=== PATIENT | female | born 1995 ===

== ENCOUNTER → 2020-11-04 | Outpatient (CLI) | payer BC ==
[~2020-11-04] MED LIST: BENADRYL25 M2 PO; MELATONIN5 M1 SL; MOTRIN 800800 MG/TAB PO; PERCOCET 325 MG1 TA2 PO; PRENATAL VITAMI1 TA3 PO
== END ==
LOC: ZCOL.LAB 09:37
DX: Z20.828 Contact with and (suspected) exposure to other viral communicable diseases (principal)

== ENCOUNTER 2020-11-06 07:25 | Inpatient (IN) | payer BC ==
[2020-11-06] VITALS (42 sets, daily range): BP systolic 102–143; BP diastolic 57–90; PULSE 65–113; TEMP 97.9–98.7
[~2020-11-06] VITALS: Ht 165.1 cm; Wt 79.5 kg
--- NOTE | 2020-11-06 07:30 | NUR ---
Patient ambulatory onto unit with at side for scheduled induction of labor. Patient oriented to room, changes into gown, plan of care discussed. Patient reports good movement. Denies leaking of fluid. Patient does state she has had spotting and that she lost her mucous plug since Tuesday when her membranes were swept. EFMs on, VS taken. IV started in left forearm, labs drawn, LR infusing per order. Assessment completed. Consents signed. Pitocin started per order. Questions answered. Call light within reach.
[2020-11-06] MEDS ORDERED: BENADRYL25 M2 PO (08:00)
[2020-11-06] MEDS ORDERED: PRENATAL VITAMI1 TA3 PO (08:00)
[2020-11-06] MEDS ORDERED: MELATONIN5 M1 SL (08:01)
--- NOTE | 2020-11-06 08:20 | NUR ---
Dr. Schmidt to bedside for SVE/AROM. Plan of care discussed, questions answered. SVE /-1 per provider. AROM at 0823, clear fluid noted.
[2020-11-06 08:30] LABS: BASO # 0.1 (0.0-0.2); BASO % 0.4 % (0.0-2.0); EOS # 0.1 (0.0-0.7); EOS % 1.2 % (0-4.0); GRAN # 7.9 (1.4-6.5); GRAN % 71.4 % (42.2-75.2); HEMOGLOBIN 11.8 g/dl (12.5-16.0); LYMPH % 17.5 % (20.0-51.0); MEAN CELL VOLUME 93 fl (80.0-100.0); MEAN CORPUSCULAR HEMOGLOBIN 31 pg (27.0-31.0); MEAN CORPUSCULAR HGB CONC 33 g/dl (33.0-37.0); MEAN PLATELET VOLUME 11.1 fl (7.4-10.4); MONO # 0.9 (0.1-0.6); MONO % 8.2 % (1.7-9.3); PLATELET COUNT 273 K/mm3 (130-400); REDCELL DISTRIBUTION WIDTH-CV 12.4 % (11.5-14.5)
[2020-11-06 08:34] LABS: HEMATOCRIT 35.3 % (37.0-47.0)
--- NOTE | 2020-11-06 09:30 | NUR ---
Patient starting to feel discomfort with contractions, states they feel similar to period cramps during contraction. Denies intense pain or need for epidural at this time. at bedside. Call light within reach.
--- NOTE | 2020-11-06 09:50 | NUR ---
Pitocin off. O2 on via face mask. Patient repositioned to right lateral position. Plan of care discussed with patient and . Questions answered. Call light within reach.
--- NOTE | 2020-11-06 10:30 | NUR ---
Oxygen off. SVE 3-4/80/-2 per this RN. Pitocin restarted per orders. Patient repositioning self in bed. Popsicle provided per patient request.
--- NOTE | 2020-11-06 11:10 | NUR ---
Patient standing at bedside. States pain with contractions is increasing. Unable to rate on pain scale but states "they are worse than period cramps".
--- NOTE | 2020-11-06 11:30 | NUR ---
[id number]: Patient up to bathroom to have bowel movement.
--- NOTE | 2020-11-06 11:45 | NUR ---
Patient requesting epidural placement, breathing through contractions. Abdomen palpates firm. Bridger MORSE on unit for another epidural, will notify. Patient up to bathroom again.
--- NOTE | 2020-11-06 11:55 | NUR ---
[id number]: Patient up to bathroom for bowel movement.
--- NOTE | 2020-11-06 12:10 | NUR ---
1155: Patient returns from bathroom. Sitting up at edge of bed for epidural. 1200: Bridger MORSE at bedside. 1203: Single Shot given by Bridger MORSE, no adverse reaction noted. Patient to left tilt. Plan of care discussed. Will continue to monitor.
--- NOTE | 2020-11-06 13:35 | NUR ---
Patient reports rectal pressure with contractions. SVE 7/100/0 per this RN. Patient repositioned to right tilt with peanut ball in place, HOB elevated. Instructed to notify RN with increased rectal pressure, pain, or urge to push. at bedside. Call light within reach.
--- NOTE | 2020-11-06 14:00 | NUR ---
Patient calls out feeling "lightheaded". States it came on suddenly and "my face felt numb". VS WNL. SpO2 100%. BP 110/65 P 75. HOB lowered. Patient states she feels better. Encouraged to notify RN if it happens again. at bedside.
--- NOTE | 2020-11-06 15:50 | NUR ---
1430: SVE Complete/+3 per . 1438: Initial push. 1546: Spontaneous vaginal delivery of viable female infant over 2nd degree laceration assisted by . Pitocin off. care assumed by Loki MONTOYA at this time. 1548: Spontaneous vaginal delivery of placenta assisted by . Fundus firm. Pitocin infusing at 333ml/hr. 2nd degree perineal laceration repaired using 2-[address]-1. 1552: Red Jose catheter used to drain approximately 100ml clear yellow urine.
--- NOTE | 2020-11-06 20:00 | NUR ---
PT UP TO THE BATHROOM AND CLEANED UP. NEW GOWN, NEW MESH UNDIES, PAD AND ICEPACK. PT. TOLERATED WALKING WELL WITH NO DIZZINESS, LIGHTHEADEDNESS OR PROBLEMS. PT. MOVED OUT TO ROOM AND ABULATED WELL ON HER OWN.
[2020-11-07] MEDS ORDERED: MOTRIN 800800 MG/TAB PO (01:25)
[2020-11-07 02:00] VITALS: BP 110/81; PULSE 100; TEMP 98.3
[2020-11-07 08:39] VITALS: BP 114/64; PULSE 76; TEMP 97.8
[2020-11-07] MEDS ORDERED: PERCOCET 325 MG1 TA2 PO (09:44)
[2020-11-07 15:16] VITALS: BP 118/72; PULSE 66; TEMP 98
[2020-11-07 20:30] VITALS: BP 132/73; PULSE 71; TEMP 98.2
[2020-11-08 01:59] VITALS: BP 123/67; PULSE 58; TEMP 97.5
[2020-11-08 09:00] VITALS: BP 119/66; PULSE 65; TEMP 97.8
== END 2020-11-08 12:30 | disposition home or self-care (01) | DRG 807 ==
LOC: LDR 07:25 → OB 09:39
PROVIDERS: ADMIT Obstetrics & Gynecology
PROC: 10E0XZZ Delivery of Products of Conception, External Approach (ICD-10-PCS; principal; 2020-11-06)
PROC: 10907ZC Drainage of Amniotic Fluid, Therapeutic from Products of Conception, Via Natural or Artificial Opening (ICD-10-PCS; 2020-11-06)
PROC: 3E033VJ Introduction of Other Hormone into Peripheral Vein, Percutaneous Approach (ICD-10-PCS; 2020-11-06)
DX: O75.9 Complication of labor and delivery, unspecified (principal); Z37.0 Single live birth; O70.1 Second degree perineal laceration during delivery; Z3A.39 39 weeks gestation of pregnancy
CPT/HCPCS: J2590; J2795; J7120

== ENCOUNTER → 2020-12-15 | Outpatient (CLI) | payer BC ==
--- NOTE | 2020-12-15 17:27 | NUR ---
Pt, Ana María Damon, presents to consult with 5+ week old baby girl, Emeterio Damon and her spouse Hayden Damon. Pt requested a consult because Emeterio was below weight at one month of age. Emeterio was born on 11/06/2022 and weighed 7#13.9oz (3540 gms). Her discharge weight was 7#6oz and at her first doctor appointment on 11/10/2020 she weighed 7#5oz. On 12/07/20 Emeterio weighed 7#8oz per parents report and she was started on reflux medication. She didn't seem to tolerate that and was seen again on 12/11/20 and her weight was reported to be 7#10oz. Emeterio was seen at [facility] and weighed 8#1oz. At this appointment she weighes 8#0.4oz (3642 gms). She had a soiled diaper prior to this weight. Pt has been , pumping and supplementing 2-3oz EBM per feeding since her appointment on 12/11/20. Pt has been keeping up with volume for supplement but started to sore on one nipple so started using the haaka instead of the electric pump. She does not collect as much with the haaka and is having to use previously saved milk, so is getting concerned about maintaining milk supply. Pt latches baby in a normal fashion on the right breast. Emeterio seems to have a good effort and after nursing she has a gain of 28gms. advises use of the cross cradle to increase amount of areola into Emeterio's mouth but she only tranfers 8ml from the left side for a total gain of 36gms (1.5oz). LC does suck evaluation, Emeterio seems to extend her tongue adequately across the gum line to hold the breast/nipple, but she does have a high anterior palate that may be causing the nipple to get trapped there and not extend deeply into the mouth for compression by the tongue against the palate. Spit up was not observed at this consultation. LC offered suggestions to make pumping more comfortable. Pt and FOB discuss getting baby scale for home use. Advised to get the lowest calibration as possible for accuracy. POC: Pt will continue , collecting milk, and supplementing. She will offer at least 2oz per feeding. F/U: Pt will contact this LC with updates on 's weights over the next few days. Questions invited and answered.
== END | disposition still patient (30) ==
LOC: LAC 00:39
DX: Z39.1 Encounter for care and examination of lactating mother (principal); Z71.89 Other specified counseling